=== PATIENT | female | born 1945 | race Asian ===

== ENCOUNTER 2025-03-13 14:07 | Outpatient (CLI) | payer MEDICARE, BC | END 2025-03-13 14:08 | disposition home or self-care (01) | LOC: CSHMAMMO 14:07 | PROVIDERS: ATTEND Internal Medicine | DX: Z12.31 Encounter for screening mammogram for malignant neoplasm of breast (principal); Z78.0 Asymptomatic menopausal state; M85.851 Other specified disorders of bone density and structure, right thigh | CPT/HCPCS: 77063; 77067; 77080 ==